=== PATIENT | female | born 1945 | race Caucasian/White ===

== ENCOUNTER 2019-02-25 07:45 | Emergency (ER) | payer OTHER ==
[~2019-02-25] VITALS: Ht 152.4 cm; Wt 58.1 kg
[~2019-02-25 07:45] MED LIST: ATENOLOL50 MG; AVANDAMET 4 MG/1 TA1; HYZAAR 100/25 T1 TAB
[2019-02-25] MEDS ORDERED: TOPROL XL50 M1 PO (07:57)
== END 2019-02-25 13:02 | disposition home or self-care (01) ==
LOC: ER 07:45
DX: N28.1 Cyst of kidney, acquired (principal); R53.1 Weakness